=== PATIENT | female | born 1970 | race Caucasian/White ===

== ENCOUNTER 2016-12-28 17:43 | Emergency (ER) | payer OTHER ==
[2016-12-28] MEDS ORDERED: ONDANSETRON 4 MG ODT TAB ONE (18:58)
== END 2016-12-28 19:18 | disposition home or self-care (01) ==
LOC: ED 17:43
DX: J01.90 Acute sinusitis, unspecified (principal); I10 Essential (primary) hypertension; E03.9 Hypothyroidism, unspecified
CPT/HCPCS: 99283 ×2; A9270